=== PATIENT | female | born 1985 | race Caucasian/White ===

== ENCOUNTER 2024-12-23 14:10 | Emergency (ER) | payer OTHER, SELFPAY ==
[2024-12-23 14:12] VITALS: BP 120/64
[2024-12-23 14:27] LABS: Urine Albumin 3+ (Neg - Trace); Urine Bilirubin Negative (Negative); Urine Character Clear (Clear); Urine Color Yellow; Urine Glucose Negative (Negative); Urine Ketone 3+ (Negative); Urine Leukocyte 3+ (Negative); Urine Nitrite Negative (Negative); Urine Occult Blood 4+ (Negative); Urine Urobilinogen Negative (Neg - 1+)
[2024-12-23 14:37] LABS: % Basophils 0.2 % (0-2); % Eosinophils 0.2 % (0-6); % Immature Granulocytes 0.6 % (0-0.5); % Lymphocytes 9.9 % (20.5-51.1); % Neutrophils 83.1 % (42.2-75.2); Absolute Immature Granulocytes 0.1 10^3/uL (0-0.05); Absolute Lymphocytes 1.6 10^3/uL (1.2-3.4); Absolute Neutrophils 13.5 10^3/uL (1.4-6.5); Hematocrit 35.6 % (37.0-47.0); Hemoglobin 11.1 g/dL (12.0-16.0); Mean Corp Hgb Conc. 31.2 g/dL (33.0-37.0); Mean Corpuscular Hgb 27.8 pg (27.0-31.0); Nucleated Red Blood Cells % 0 %; Platelet Count 232 10^3/uL (130-400); Red Cell Dist. Width 13.2 % (11.5-14.5); White Blood Cell Count 16.3 10^3/uL (4.8-10.8)
[2024-12-23 14:43] LABS: HCG, Serum Qualitative Screen Negative
[2024-12-23 14:48] LABS: ALT (SGPT) 29 U/L (0-35); AST (SGOT) 29 U/L (14-36); Albumin 4.2 g/dl (3.5-5.0); Alkaline Phosphatase 120 U/L (38-126); Blood Urea Nitrogen 16 mg/dl (7-17); Calcium 9.5 mg/dl (8.4-10.2); Carbon Dioxide 24 mmol/L (22-30); Chloride 102 mmol/L (98-107); Glucose 119 mg/dl (70-99); Potassium 3.5 mmol/L (3.5-5.1); Sodium 138 mmol/L (135-145); Total Bilirubin 0.7 mg/dl (0.2-1.3); Total Protein 7.5 g/dl (6.3-8.2); eGFR > 60.00
[2024-12-23 15:02] LABS: Urine Squamous Cell >30 /LPF (Few)
[2024-12-23 15:03] LABS: Urine Amorphous Seen; Urine Red Blood Cell 26-30 /HPF (0-2)
[2024-12-23 15:04] LABS: Urine White Cell >100 /HPF (0-5)
[2024-12-23 15:05] LABS: Urine Bacteria Moderate (Negative)
--- NOTE | 2024-12-23 16:46 | ED.GENMED ---
History of Present Illness
<Jackelyn Hemphill, CLINICAL DOCUMENTATION CLERK - Last Filed: 12/24/24 14:07>
General
Chief Complaint: Flank Pain
Source: patient
Exam Limitations: none
Time Seen by Provider: 12/23/24 14:37
Nursing documentation reviewed up to this point in time: agreed with
History of Present Illness
History of Present Illness:
39-year-old female 5 weeks post uncomplicated vaginal delivery presents with right-sided flank pain, went to urgent care earlier today had a UA that was positive for blood and she was started on Cipro, she has had 1 dose of Cipro 500 mg
by mouth.
She states 3 days ago she had fever and chills. Fever max was 100.5 but the chills were 'really bad.'
Denies nausea or vomiting. Denies chest pain or trouble breathing. Denies burning, frequency, urgency with urination. Denies abdominal pain.
Past History
<Jackelyn Hemphill, CLINICAL DOCUMENTATION CLERK - Last Filed: 12/24/24 14:07>
Past History
ED Past Medical History: None
ED Past Surgical History: None
Social History
Tobacco: Non-smoker
Alcohol: Occasional
Personal:
Living: with family
Review of Systems
<Jackelyn Hemphill, CLINICAL DOCUMENTATION CLERK - Last Filed: 12/24/24 14:07>
Review of Systems
Allergies reviewed?: Yes
All Other Systems: ROS reviewed and negative except as documented in HPI and ROS
Constitutional: Reports fever and chills
EENT: Denies sore throat
Respiratory: Denies trouble breathing
Cardiac: Denies chest pain
ABD/GI: Denies abdominal pain, nausea, vomiting or diarrhea
: Reports flank pain (right); Denies dysuria, frequency, difficulty voiding or urgency
Musculoskeletal: Reports no symptoms
Skin: Reports no symptoms
Neurological: Reports no symptoms
Phy Exam
<Jackelyn Hemphill, CLINICAL DOCUMENTATION CLERK - Last Filed: 12/24/24 14:07>
Physical Exam
Physical Exam:
GENERAL: No acute distress. A&Ox3.
CONSTITUTIONAL: Temp 99.4
EYES: clear, conjunctivae normal
ENMT: moist mucus membranes
RESPIRATORY: Regular respirations, nonlabored, lungs clear.
CARDIOVASCULAR: Regular rate and rhythm, no murmurs, no rubs.
GI: Soft, nontender, normal BS. R flank tender to percussion.
MUSCULOSKELETAL: Moves with ease. Well perfused.
SKIN: Warm, dry, pink
PSYCH: Normal mood and affect. Well kept, interactive and appropriate
NEUROLOGIC: Awake, alert and oriented. No focal neurological deficits
Course
<Jackelyn Hemphill, CLINICAL DOCUMENTATION CLERK - Last Filed: 12/24/24 14:07>
Orders/Labs/Results
Orders:
Orders
12/23/24 14:18
Test Result ONCE
12/23/24 14:21
Complete Blood Count/With Diff Urgent
Comprehensive Metabolic Panel Urgent
HCG, Serum Qualitative Screen Urgent
Urinalysis Reflex To Culture Urgent
Date Specimen was Collected: 12/23/24
Time Specimen was Collected: 14:17
Urine Microscopic Reflex Cult Urgent
Urine Culture Urgent
BALDEV Source: U
Specimen Description:
Date Specimen was Collected: 12/23/24
Time Specimen was Collected: 14:17
12/23/24 14:45
CT Abd/pel Without Iv Or Oral Urgent
Comment:
Reason For Exam: R flank pain hematuria
12/23/24 15:30
0.9% Sodium Chloride 1000 ml [Nss] 1,000 ml IV BOLUS
12/23/24 18:16
CefTRIAXone [Rocephin] 1,000 mg IV NOW STA
Abnormal Lab Results
12/23/24
14:21
WBC 16.3 H 10^3/uL
(4.8-10.8)
RBC 4.00 L 10^6/uL
(4.20-5.40)
Hgb 11.1 L g/dL
(12.0-16.0)
Hct 35.6 L %
(37.0-47.0)
MCHC 31.2 L g/dL
(33.0-37.0)
MPV 11.0 H fL
(7.4-10.4)
Abs Immat Gran (auto) 0.1 H 10^3/uL
(0-0.05)
Absolute Neuts (auto) 13.5 H 10^3/uL
(1.4-6.5)
Absolute Monos (auto) 1.0 H 10^3/uL
(0.1-0.6)
Immature Gran % 0.6 H %
(0-0.5)
Neutrophils % 83.1 H %
(42.2-75.2)
Lymphocytes % 9.9 L %
(20.5-51.1)
Glucose 119 H mg/dl
(70-99)
Urine Ketones 3+ A
(Negative)
Ur Occult Blood Reflex 4+ A
(Negative)
Leukocyte Esterase Rfl 3+ A
(Negative)
Urine RBC 26-30 A /HPF
(0-2)
Urine WBC (Reflex) >100 A /HPF
(0-5)
Urine Bacteria (Reflex) Moderate A
(Negative)
Urine Albumin (Reflex) 3+ A
(Neg - Trace)
12/23/24 14:21
12/23/24 14:21
Vital Signs
Initial and Last Documented VS:
Initial Vital Signs
Temp Pulse Resp BP Pulse Ox
99.3 F 119 18 120/64 100
12/23/24 14:12 12/23/24 14:12 12/23/24 14:12 12/23/24 14:12 12/23/24 14:12
Last Documented Vital Signs
Temp Pulse Resp BP Pulse Ox
99.3 F 119 18 120/64 100
12/23/24 14:12 12/23/24 14:12 12/23/24 14:12 12/23/24 14:12 12/23/24 14:12
<Sonny Estrada, DO - Last Filed: 12/23/24 18:33>
Orders/Labs/Results
Orders:
Orders
12/23/24 14:18
Test Result ONCE
12/23/24 14:21
Complete Blood Count/With Diff Urgent
Comprehensive Metabolic Panel Urgent
HCG, Serum Qualitative Screen Urgent
Urinalysis Reflex To Culture Urgent
Date Specimen was Collected: 12/23/24
Time Specimen was Collected: 14:17
Urine Microscopic Reflex Cult Urgent
Urine Culture Urgent
BALDEV Source: U
Specimen Description:
Date Specimen was Collected: 12/23/24
Time Specimen was Collected: 14:17
12/23/24 14:45
CT Abd/pel Without Iv Or Oral Urgent
Comment:
Reason For Exam: R flank pain hematuria
12/23/24 15:30
0.9% Sodium Chloride 1000 ml [Nss] 1,000 ml IV BOLUS
12/23/24 18:16
CefTRIAXone [Rocephin] 1,000 mg IV NOW STA
Abnormal Lab Results
12/23/24
14:21
WBC 16.3 H 10^3/uL
(4.8-10.8)
RBC 4.00 L 10^6/uL
(4.20-5.40)
Hgb 11.1 L g/dL
(12.0-16.0)
Hct 35.6 L %
(37.0-47.0)
MCHC 31.2 L g/dL
(33.0-37.0)
MPV 11.0 H fL
(7.4-10.4)
Abs Immat Gran (auto) 0.1 H 10^3/uL
(0-0.05)
Absolute Neuts (auto) 13.5 H 10^3/uL
(1.4-6.5)
Absolute Monos (auto) 1.0 H 10^3/uL
(0.1-0.6)
Immature Gran % 0.6 H %
(0-0.5)
Neutrophils % 83.1 H %
(42.2-75.2)
Lymphocytes % 9.9 L %
(20.5-51.1)
Glucose 119 H mg/dl
(70-99)
Urine Ketones 3+ A
(Negative)
Ur Occult Blood Reflex 4+ A
(Negative)
Leukocyte Esterase Rfl 3+ A
(Negative)
Urine RBC 26-30 A /HPF
(0-2)
Urine WBC (Reflex) >100 A /HPF
(0-5)
Urine Bacteria (Reflex) Moderate A
(Negative)
Urine Albumin (Reflex) 3+ A
(Neg - Trace)
12/23/24 14:21
12/23/24 14:21
Vital Signs
Initial and Last Documented VS:
Initial Vital Signs
Temp Pulse Resp BP Pulse Ox
99.3 F 119 18 120/64 100
12/23/24 14:12 12/23/24 14:12 12/23/24 14:12 12/23/24 14:12 12/23/24 14:12
Last Documented Vital Signs
Temp Pulse Resp BP Pulse Ox
99.3 F 119 18 120/64 100
12/23/24 14:12 12/23/24 14:12 12/23/24 14:12 12/23/24 14:12 12/23/24 14:12
<Jackelyn Hemphill NP - Last Filed: 12/24/24 14:07>
MDM/Problems Addressed
Differential Diagnosis Includes:
Pyelonephritis, kidney stone, UTI
MDM/Problems Addressed:
39-year-old female 5 weeks post uncomplicated vaginal delivery presents with right-sided flank pain, went to urgent care earlier today had a UA that was positive for blood and she was started on Cipro, she has had 1 dose of Cipro 500 mg
by mouth.
She states 3 days ago she had fever and chills. Fever max was 100.5 but the chills were 'really bad.'
Denies nausea or vomiting. Denies chest pain or trouble breathing. Denies burning, frequency, urgency with urination. Denies abdominal pain.
Temperature 99.3, pulse 120
Patient took Advil 400 mg just prior to arrival, she states her flank pain went from 7/10 to now 3/10.
CBC: WBC 16.3 with a shift
CMP normal
hCG negative
UA: Hematuria with greater than 100 white blood cells
5:00 p.m.:
39-year-old female with no major comorbidities other than being in the hospital for childbirth 5 weeks ago, presents with a mild to moderate acute complicated urinary tract infection/pyelonephritis. She is able to hold fluids down there has been
no vomiting, there is no suprapubic tenderness however she does have fever, pain, rigors and hematuria.
5:[address] abdomen and pelvis plain radiology report read: IMPRESSION: No
Small right lower pole nephrolithiasis. No hydronephrosis but mild dilatation of the proximal to mid right ureter without evidence for an obstructing ureteral calculus. This finding is nonspecific, but could be secondary to a recently passed
calculus or an ascending urinary tract infection in the appropriate clinical setting.
Case discussed with Dr. Estrada who agrees patient is totally nontoxic-appearing, stable for discharge, strict return instructions provided I did text urologist
Peffer but he was in the OR for the next 40 minutes doing an emergency case.
Will change Cipro to Augmentin 875 twice daily since patient is breast-feeding. According to risk Abdirahman, there is limited data on the risk of safety with breast-feeding with fluoroquinolones
<Jackelyn Hemphill, CLINICAL DOCUMENTATION CLERK - Last Filed: 12/24/24 14:07>
*Critical Care Note
Total Time (30-74mins, 75-104mins- exclusive of procedures): Not Applicable
ED Attending Note
<Jackelyn Hemphill CLINICAL DOCUMENTATION CLERK - Last Filed: 12/24/24 14:07>
-
Portions of this chart may have been created with voice recognition software.� Occasional wrong word or��sound alike� substitutions may have occurred due to the inherent limitations of voice recognition software.
<Sonny Estrada DO - Last Filed: 12/23/24 18:33>
ED Attending Note
Patient seen and examined by attending physician: Yes
I performed the substantive portion of visit, reviewed & personally made and approve the management plan that is documented in note by myself or ABDIRAHMAN.: Yes
ED Attending Note:
Seen with CLINICAL DOCUMENTATION CLERK examined independently 39-year-old female presents with fever chills flank pain seen in urgent care given Cipro she is 5 weeks she initially thought she had the flu, she underwent a CAT scan here and blood work looks like a
passed ureteral stone which fits clinically, expect that this could be pyelonephritis likely looks like she passed her stone, will switch her antibiotics to ceftriaxone and Augmentin as she is breast-feeding
Discharge Plan
Departure
Patient Disposition: Home (Routine Discharge)
Patient with high blood pressure during this ER visit?: No
Condition: Good
Discharge Problem:
UTI (urinary tract infection)
Prescriptions:
New
amoxicillin-pot clavulanate 875-125 mg tablet
1 tab PO BID Qty: 20 0RF
Referrals:
NONE,* [Family Provider] -
Monico Nayak MD [Active] - Call in 1-3 days for appt
Activity Restrictions/Additional Instructions:
As we discussed, there is mild swelling in the ureter which may represent a recently passed kidney stone.
You have a urine infection and it may travel up the ureter to the kidney causing pyelonephritis.
Stop the Cipro and start the Augmentin tomorrow morning. I sent a prescription to your pharmacy for Augmentin 875 mg twice a day for 10 days
If you develop chills, fever above 100.5 or any fever that is not relieved with Tylenol or ibuprofen, vomiting, increasing pain or feeling sicker in any way come back here immediately.
Interventions
Interventions:
*Risk Screen - Suicide Last Done: 12/23/24 14:12
*General Assessment Last Done: 12/23/24 14:12
*Neglect/Abuse Screening Last Done: 12/23/24 14:12
*Nursing Disposition Last Done: 12/23/24 18:47
FI-Mkorfq-Cwsxrfcgok Assessment Last Done: 12/23/24 16:53
Discharge Date and Time
Discharge Date/Time: 12/23/24 18:48
Print Language: MONEGASQUE
[2024-12-23] MEDS: NSS 1000 IV (16:52)
[2024-12-23] MEDS: ROCEPHIN 1000 MG IV (18:44)
== END 2024-12-23 18:48 | disposition home or self-care (01) ==
LOC: EMR 14:10
PROVIDERS: Emergency Medicine; EMERGENCY PHYSICIAN Emergency Medicine
DX: N39.0 Urinary tract infection, site not specified (principal); R10.9 Unspecified abdominal pain
CPT/HCPCS: 99284; 96374; 74176; 80053; 81003; 81015; 84703; 85025; 87086